=== PATIENT | female | born 1950 | race Caucasian/White ===

== ENCOUNTER → 2017-02-03 | Outpatient (CLI) | payer BC ==
[~2017-02-03] MED LIST: ACIDOPHILUS PO; ASPIR-LOW81 MG PO; ASPIR-LOX325 MG PO; BENADRYL25 M2 PO; CALTRATE-600 W600 MG PO; CIPRO 500MG TA500 MG PO; EPA/GLA1 SGL PO; FLONASE NASAL S16 GM NS; MAXALT10 MG PO; MULTIPLE VITAMI1 TAB PO; MVI; ONE DAILY 50 PL1 TAB PO; PREMARIN0.625 MG PO; PRILOSEC 20MG20 MG PO; PROTONIX20 MG PO; TYLENOL 500MG500 MG PO
== END ==
LOC: MC.RAD 11:36
DX: Z12.31 Encounter for screening mammogram for malignant neoplasm of breast (principal)

== ENCOUNTER → 2018-03-02 | Outpatient (CLI) | payer MEDICARE, BC | LOC: MC.RAD 13:27 | DX: Z12.31 Encounter for screening mammogram for malignant neoplasm of breast (principal) ==

== ENCOUNTER → 2018-05-08 | Outpatient (CLI) | payer MEDICARE, BC | LOC: COL.RAD 14:30 | DX: J32.0 Chronic maxillary sinusitis (principal) ==

== ENCOUNTER → 2019-03-31 | Outpatient (CLI) | payer MEDICARE, BC | LOC: MC.RAD 10:23 | DX: Z12.31 Encounter for screening mammogram for malignant neoplasm of breast (principal) ==

== ENCOUNTER → 2020-04-26 | Outpatient (CLI) | payer MEDICARE, BC | LOC: MC.RAD 13:45 | DX: Z12.31 Encounter for screening mammogram for malignant neoplasm of breast (principal) ==

== ENCOUNTER → 2020-05-01 | Outpatient (CLI) | payer MEDICARE, BC | LOC: COL.RAD 11:54 | DX: E04.2 Nontoxic multinodular goiter (principal) ==

== ENCOUNTER → 2021-05-15 | Outpatient (CLI) | payer MEDICARE, BC | LOC: MC.RAD 10:27 | DX: Z12.31 Encounter for screening mammogram for malignant neoplasm of breast (principal) ==

== ENCOUNTER → 2022-06-12 | Outpatient (CLI) | payer MEDICARE, BC | LOC: MC.RAD 13:12 | DX: Z12.31 Encounter for screening mammogram for malignant neoplasm of breast (principal); N63.20 Unspecified lump in the left breast, unspecified quadrant; N64.4 Mastodynia ==